=== PATIENT | female | born 1950 | race African-American/Black ===

== ENCOUNTER → 2019-12-23 | Outpatient (CLI) | payer MEDICARE ==
--- NOTE | 2019-12-23 16:53 | Diagnostic Imaging Report ---
EXAMINATION: CERVICAL SPINE 4 OR 5 VIEWS INDICATION: Cervical spondylosis COMPARISON: None FINDINGS: 5 views of the cervical spine were obtained. No acute fracture or dislocation. There is straightening of the normal cervical lordosis. Alignment is otherwise anatomic. Moderate multilevel degenerative changes with disc space narrowing and osteophyte formation most notably at C3-4 and C5-6. Oblique views demonstrate associated foraminal narrowing. IMPRESSION: No acute osseous injury. Straightening of the normal cervical lordosis and moderate multilevel degenerative changes as above. Signed by: Ariel Chairez MD on 12/23/2019 4:50 PM
== END ==
LOC: RAD 15:30
PROVIDERS: ATTEND Internal Medicine
DX: M47.22 Other spondylosis with radiculopathy, cervical region (principal)
CPT/HCPCS: 72050

== ENCOUNTER 2021-08-21 17:56 | Inpatient (IN) | payer MEDICARE ==
[~2021-08-21] VITALS: Ht 182.9 cm; Wt 134.7 kg
[2021-08-21] MEDS: SODIUM CHLORIDE 0.9% 1000ML 1,000 ML IV SCH (01:11)
[2021-08-21] MEDS: METRONIDAZOLE 500MG/NS 100ML 100 ML IV SCH (01:11)
[2021-08-21] MEDS ORDERED: SODIUM CHLORIDE 0.9% 1000ML 1,000 ML IV STA (18:09)
[2021-08-21] MEDS ORDERED: ASPIRIN 81 MG CHEW TAB PO ONE (18:15)
[2021-08-21 18:25] LABS: BASOPHILS % 0.5 % (0.0-1.0); EOSINOPHILS % 0.2 % (0.0-6.0); HEMATOCRIT 37.8 % (34.2-44.1); HEMOGLOBIN 11.6 g/dL (12.0-16.0); LYMPHOCYTES # (AUTO) 0.7 (1.0-3.2); LYMPHOCYTES % 11.1 % (18.0-39.1); MEAN CORPUSCULAR HEMOGLOBIN 28.2 pg (28-32); MEAN CORPUSCULAR HGB CONC 30.7 g/dL (31-35); MONOCYTES # (AUTO) 1.4 (0.2-0.8); NEUTROPHILS # (AUTO) 3.8 (2.1-6.9); NEUTROPHILS % 60.7 % (38.7-80.0); PLATELET COUNT 303 x10e3/uL (140-360); RED BLOOD COUNT 4.11 x10e6/uL (3.6-5.1); RED CELL DISTRIBUTION WIDTH 17.2 % (11.7-14.4)
[2021-08-21 18:46] LABS: ALBUMIN 3.4 g/dL (3.5-5.0); ALBUMIN/GLOBULIN RATIO 0.7 (0.8-2.0); ANION GAP 19.4 mmol/L (8-16); CALCIUM 8.7 mg/dL (8.4-10.2); CREATININE, SERUM 1.41 mg/dL (0.57-1.11); POTASSIUM 4.4 mmol/L (3.5-5.1)
[2021-08-21 18:52] LABS: BAND NEUTROPHILS % (MANUAL) 4 %; CREATINE KINASE MB 2.5 ng/mL (0-5.0); LYMPHOCYTES % (MANUAL) 19 % (19-48); MONOCYTES % (MANUAL) 19 % (3.4-9.0); MYELOCYTES % (MANUAL) 2 % (0-0); NEUTROPHILS % (MANUAL) 54 % (40-74); NUCLEATED RED BLOOD CELLS 1; PLATELET ESTIMATE ADEQUATE; PLATELET MORPHOLOGY COMMENT NORMAL; RBC MORPHOLOGY COMMENT NORMAL
[2021-08-21] MEDS ORDERED: ONDANSETRON HCL INJ 2MG/ML 2ML 2 MG/ML VIAL IV STA (20:23)
[2021-08-21] MEDS ORDERED: ONDANSETRON HCL INJ 2MG/ML 2ML 2 MG/ML VIAL ONE (20:25)
[2021-08-21] MEDS ORDERED: Morphine 4mg Syringe 4 MG/ML INJ IV PRN (22:30)
[2021-08-21] MEDS ORDERED: ONDANSETRON HCL INJ 2MG/ML 2ML 2 MG/ML VIAL IV PRN (22:30)
[2021-08-21 23:07] LABS: CLARITY,URINE CLOUDY (CLEAR); COLOR,URINE AMBER (YELLOW)
[2021-08-21 23:08] LABS: KETONES,URINE NEGATIVE (NEGATIVE); LEUKOCYTE ESTERASE ,URINE NEGATIVE (NEGATIVE); NITRITE,URINE NEGATIVE (NEGATIVE); PROTEIN,URINE DIPSTICK TRACE (NEGATIVE); URINE UROBILINOGEN 0.2 mg/dL (0.2 - 1)
[2021-08-21 23:09] LABS: BACTERIA,URINE MANY /HPF; EPITHELIAL CELLS,URINE MANY /LPF
[2021-08-22] VITALS (9 sets, daily range): BP systolic 142–159; BP diastolic 62–87
[2021-08-22] MEDS ORDERED: IOPAMIDOL 370 MG/ML 200 ML INFUS..BTL INJ ONE (01:16)
[2021-08-22] MEDS ORDERED: SODIUM CHLORIDE 0.9% 50ML 50 ML ONE (01:16)
[2021-08-22] MEDS ORDERED: FEROSUL325 MG PO (02:13)
[2021-08-22] MEDS ORDERED: METFORMIN HCL500 MG PO (02:13)
[2021-08-22] MEDS ORDERED: FUROSEMIDE40 MG PO (02:13)
[2021-08-22] MEDS ORDERED: CHOLECALCIFEROL1 GM PO (02:13)
[2021-08-22] MEDS ORDERED: RINVOQ ER15 MG PO (02:13)
[2021-08-22] MEDS ORDERED: LIPITOR10 MG PO (02:13)
[2021-08-22] MEDS ORDERED: LYRICA50 MG PO (02:13)
[2021-08-22] MEDS ORDERED: BUPROPION XL150 MG PO (02:13)
[2021-08-22] MEDS ORDERED: LOSARTAN POTAS100 MG PO (02:13)
[2021-08-22] MEDS ORDERED: PANTOPRAZOLE SO40 MG PO (02:13)
[2021-08-22] MEDS ORDERED: POTASSIUM CHLO10 ME1 PO (02:13)
[2021-08-22] MEDS ORDERED: HYDROCHLOROTHIA25 MG PO (02:13)
[2021-08-22] MEDS ORDERED: FOLIC ACID-VIT1 EACH PO (02:13)
[2021-08-22] MEDS ORDERED: SPIRONOLACTONE50 MG (02:13)
[2021-08-22] MEDS ORDERED: METHOTREXATE2.5 MG PO (02:13)
[2021-08-22] MEDS ORDERED: CLONIDINE HCL0.1 MG PO (02:13)
[2021-08-22 04:06] LABS: CREATINE KINASE MB 2.5 ng/mL (0-5.0)
[2021-08-22 07:00] LABS: ALBUMIN/GLOBULIN RATIO 0.8 (0.8-2.0); ANION GAP 15.1 mmol/L (8-16); CALCIUM 8.2 mg/dL (8.4-10.2); CREATININE, SERUM 1.21 mg/dL (0.57-1.11); POTASSIUM 3.1 mmol/L (3.5-5.1)
[2021-08-22] MEDS: CIPROFLOXACIN 400 MG/D5W 200ML 200 ML IV SCH ×2 (09:00→16:11)
[2021-08-22] MEDS: METRONIDAZOLE 500MG/NS 100ML 100 ML IV SCH (10:00)
[2021-08-22 11:29] LABS: BASOPHILS % 0.5 % (0.0-1.0); EOSINOPHILS # (AUTO) 0.1 (0.0-0.4); EOSINOPHILS % 0.8 % (0.0-6.0); HEMATOCRIT 38.7 % (34.2-44.1); HEMOGLOBIN 11.3 g/dL (12.0-16.0); LYMPHOCYTES # (AUTO) 0.9 (1.0-3.2); LYMPHOCYTES % 13.4 % (18.0-39.1); MEAN CORPUSCULAR HEMOGLOBIN 27.8 pg (28-32); MEAN CORPUSCULAR HGB CONC 29.2 g/dL (31-35); MONOCYTES # (AUTO) 1.6 (0.2-0.8); MONOCYTES % 24.9 % (4.4-11.3); NEUTROPHILS # (AUTO) 3.6 (2.1-6.9); NEUTROPHILS % 55.2 % (38.7-80.0); PLATELET COUNT 222 x10e3/uL (140-360); RED BLOOD COUNT 4.07 x10e6/uL (3.6-5.1); RED CELL DISTRIBUTION WIDTH 17.5 % (11.7-14.4)
[2021-08-22] MEDS ORDERED: SODIUM CHLORIDE 0.9% 250ML 0 ML ONE (11:36)
[2021-08-22 11:52] LABS: CREATINE KINASE MB 2.3 ng/mL (0-5.0); MEAN CORPUSCULAR VOLUME 95.4 fL (81-99)
[2021-08-22] MEDS: SODIUM CHLORIDE 0.9% 1000ML 1,000 ML IV SCH ×3 (16:30→22:30)
[2021-08-22] MEDS: METRONIDAZOLE 500 MG TAB PO SCH ×2 (18:00→21:47)
[2021-08-22] MEDS: CLONIDINE HCL 0.1 MG TAB PO SCH (21:46)
[2021-08-22] MEDS: PREGABALIN 50 MG CAP PO SCH (21:47)
[2021-08-22] MEDS: ATORVASTATIN 10 MG TAB PO SCH (21:47)
[2021-08-23] VITALS (8 sets, daily range): BP systolic 112–143; BP diastolic 65–90
[2021-08-23 05:53] LABS: BASOPHILS % 0.5 % (0.0-1.0); EOSINOPHILS # (AUTO) 0.1 (0.0-0.4); EOSINOPHILS % 1.4 % (0.0-6.0); HEMATOCRIT 33.1 % (34.2-44.1); LYMPHOCYTES # (AUTO) 0.7 (1.0-3.2); LYMPHOCYTES % 9.8 % (18.0-39.1); MEAN CORPUSCULAR HEMOGLOBIN 28.3 pg (28-32); MEAN CORPUSCULAR HGB CONC 30.2 g/dL (31-35); MEAN CORPUSCULAR VOLUME 93.8 fL (81-99); MONOCYTES # (AUTO) 1.5 (0.2-0.8); MONOCYTES % 19.9 % (4.4-11.3); NEUTROPHILS # (AUTO) 4.6 (2.1-6.9); NEUTROPHILS % 63.1 % (38.7-80.0); PLATELET COUNT 258 x10e3/uL (140-360); RED BLOOD COUNT 3.53 x10e6/uL (3.6-5.1); RED CELL DISTRIBUTION WIDTH 17.2 % (11.7-14.4)
[2021-08-23 06:15] LABS: CALCIUM 8.3 mg/dL (8.4-10.2); CREATININE, SERUM 1.05 mg/dL (0.57-1.11)
[2021-08-23] MEDS: SODIUM CHLORIDE 0.9% 1000ML 1,000 ML IV SCH ×3 (06:19→20:32)
[2021-08-23 06:42] LABS: % IRON SATURATION 11 % (15-50); IRON 29 ug/dL (50-170); TOTAL IRON BINDING CAPACITY 255 ug/dL (261-478); TRANSFERRIN 182 mg/dL (180-382)
[2021-08-23] MEDS ORDERED: POTASSIUM CHLORIDE 20 MEQ TAB CR PO ONE (09:00)
[2021-08-23] MEDS ORDERED: POTASSIUM CHLORIDE 20 MEQ TAB CR PO PRN (09:00)
[2021-08-23] MEDS: BUPROPION HCL 150 MG TABCR PO SCH (10:00)
[2021-08-23] MEDS: CIPROFLOXACIN 400 MG/D5W 200ML 200 ML IV SCH ×2 (10:00→16:30)
[2021-08-23] MEDS: METRONIDAZOLE 500 MG TAB PO SCH ×4 (10:00→20:32)
[2021-08-23] MEDS: LOSARTAN POTASSIUM 100 MG TAB PO SCH (10:00)
[2021-08-23] MEDS: FERROUS SULFATE 325 MG TAB PO SCH (10:00)
[2021-08-23] MEDS: IRON SUCROSE 100 MG in SODIUM CHLORIDE 0.9% 100 ML 100 ML IV SCH (11:00)
[2021-08-23 15:36] LABS: WBC,FECAL (FECAL LACTOFERRIN) POSITIVE (NEGATIVE)
[2021-08-23] MEDS: ATORVASTATIN 10 MG TAB PO SCH (20:32)
[2021-08-23] MEDS: CLONIDINE HCL 0.1 MG TAB PO SCH (20:32)
[2021-08-23] MEDS: PREGABALIN 50 MG CAP PO SCH (20:32)
[2021-08-24] VITALS (8 sets, daily range): BP systolic 115–153; BP diastolic 57–79
[2021-08-24] MEDS: SODIUM CHLORIDE 0.9% 1000ML 1,000 ML IV SCH ×3 (05:22→20:58)
[2021-08-24 05:35] LABS: BASOPHILS % 0.4 % (0.0-1.0); EOSINOPHILS # (AUTO) 0.1 (0.0-0.4); EOSINOPHILS % 1.6 % (0.0-6.0); HEMATOCRIT 33.1 % (34.2-44.1); HEMOGLOBIN 9.5 g/dL (12.0-16.0); LYMPHOCYTES # (AUTO) 0.7 (1.0-3.2); LYMPHOCYTES % 8.7 % (18.0-39.1); MEAN CORPUSCULAR HEMOGLOBIN 27.6 pg (28-32); MEAN CORPUSCULAR HGB CONC 28.7 g/dL (31-35); MEAN CORPUSCULAR VOLUME 96.2 fL (81-99); MONOCYTES # (AUTO) 1.2 (0.2-0.8); MONOCYTES % 14.5 % (4.4-11.3); NEUTROPHILS # (AUTO) 5.6 (2.1-6.9); NEUTROPHILS % 70.2 % (38.7-80.0); PLATELET COUNT 231 x10e3/uL (140-360); RED BLOOD COUNT 3.44 x10e6/uL (3.6-5.1); RED CELL DISTRIBUTION WIDTH 17.5 % (11.7-14.4)
[2021-08-24 06:06] LABS: ALBUMIN 2.8 g/dL (3.5-5.0); ALBUMIN/GLOBULIN RATIO 0.8 (0.8-2.0); ANION GAP 11.1 mmol/L (8-16); CALCIUM 8.1 mg/dL (8.4-10.2); CREATININE, SERUM 1.07 mg/dL (0.57-1.11); POTASSIUM 3.1 mmol/L (3.5-5.1)
[2021-08-24] MEDS ORDERED: IRON SUCROSE 100 MG in SODIUM CHLORIDE 0.9% 100 ML 100 ML IV SCH (09:00)
[2021-08-24] MEDS ORDERED: ONDANSETRON HCL 4 MG ORAL DISINTEGRATING TAB PO PRN (09:15)
[2021-08-24] MEDS: CIPROFLOXACIN 400 MG/D5W 200ML 200 ML IV SCH ×2 (10:18→17:16)
[2021-08-24] MEDS: METRONIDAZOLE 500 MG TAB PO SCH ×4 (10:19→20:58)
[2021-08-24] MEDS: BUPROPION HCL 150 MG TABCR PO SCH (10:19)
[2021-08-24] MEDS: LOSARTAN POTASSIUM 100 MG TAB PO SCH (10:19)
[2021-08-24] MEDS: FERROUS SULFATE 325 MG TAB PO SCH (10:19)
[2021-08-24] MEDS: IRON SUCROSE 100 MG in SODIUM CHLORIDE 0.9% 100 ML 100 ML IV SCH (12:00)
[2021-08-24 15:50] LABS: C DIFFICILE TOXIN A&B AMP PROB NEGATIVE (NEGATIVE)
[2021-08-24] MEDS: PREGABALIN 50 MG CAP PO SCH (20:58)
[2021-08-24] MEDS: ATORVASTATIN 10 MG TAB PO SCH (20:58)
[2021-08-24] MEDS: CLONIDINE HCL 0.1 MG TAB PO SCH (20:58)
[2021-08-25] VITALS (8 sets, daily range): BP systolic 99–147; BP diastolic 53–80
[2021-08-25] MEDS ORDERED: DICYCLOMINE HCL 20 MG TAB PO ONE (04:00)
[2021-08-25 05:00] LABS: BASOPHILS % 0.4 % (0.0-1.0); EOSINOPHILS # (AUTO) 0.1 (0.0-0.4); EOSINOPHILS % 1.6 % (0.0-6.0); HEMATOCRIT 31.6 % (34.2-44.1); HEMOGLOBIN 9.1 g/dL (12.0-16.0); LYMPHOCYTES # (AUTO) 0.6 (1.0-3.2); LYMPHOCYTES % 8.5 % (18.0-39.1); MEAN CORPUSCULAR HEMOGLOBIN 27.7 pg (28-32); MEAN CORPUSCULAR HGB CONC 28.8 g/dL (31-35); MEAN CORPUSCULAR VOLUME 96.3 fL (81-99); MONOCYTES # (AUTO) 0.9 (0.2-0.8); MONOCYTES % 11.4 % (4.4-11.3); NEUTROPHILS # (AUTO) 5.6 (2.1-6.9); PLATELET COUNT 265 x10e3/uL (140-360); RED BLOOD COUNT 3.28 x10e6/uL (3.6-5.1); RED CELL DISTRIBUTION WIDTH 17.9 % (11.7-14.4)
[2021-08-25 05:33] LABS: ALBUMIN 2.8 g/dL (3.5-5.0); ALBUMIN/GLOBULIN RATIO 0.8 (0.8-2.0); ANION GAP 12.3 mmol/L (8-16); CALCIUM 8.1 mg/dL (8.4-10.2); CREATININE, SERUM 1.11 mg/dL (0.57-1.11); POTASSIUM 3.3 mmol/L (3.5-5.1)
[2021-08-25] MEDS: SODIUM CHLORIDE 0.9% 1000ML 1,000 ML IV SCH ×2 (06:17→22:30)
[2021-08-25] MEDS: CIPROFLOXACIN 400 MG/D5W 200ML 200 ML IV SCH ×2 (09:00→17:25)
[2021-08-25] MEDS: DICYCLOMINE HCL 20 MG TAB PO SCH ×5 (09:43→21:00)
[2021-08-25] MEDS: LOSARTAN POTASSIUM 100 MG TAB PO SCH (09:43)
[2021-08-25] MEDS: METRONIDAZOLE 500 MG TAB PO SCH ×4 (09:44→20:56)
[2021-08-25] MEDS: FERROUS SULFATE 325 MG TAB PO SCH (09:44)
[2021-08-25] MEDS: BUPROPION HCL 150 MG TABCR PO SCH (09:44)
[2021-08-25] MEDS: IRON SUCROSE 100 MG in SODIUM CHLORIDE 0.9% 100 ML 100 ML IV SCH (11:00)
[2021-08-25] MEDS ORDERED: ACETAMINOPHEN 325 MG TAB PO PRN (15:45)
[2021-08-25] MEDS: CLONIDINE HCL 0.1 MG TAB PO SCH (20:56)
[2021-08-25] MEDS: ATORVASTATIN 10 MG TAB PO SCH (20:56)
[2021-08-25] MEDS: IBUPROFEN 200 MG TAB PO PRN (20:56)
[2021-08-25] MEDS: PREGABALIN 50 MG CAP PO SCH (20:56)
[2021-08-26] VITALS (7 sets, daily range): BP systolic 127–146; BP diastolic 55–66
[2021-08-26] MEDS: DICYCLOMINE HCL 20 MG TAB PO SCH ×5 (01:24→20:57)
[2021-08-26] MEDS: SODIUM CHLORIDE 0.9% 1000ML 1,000 ML IV SCH ×3 (03:32→12:40)
[2021-08-26] MEDS: HEPARIN SOD (PORCINE) 5,000 UNIT/ML VIAL SC SCH ×2 (09:00→21:00)
[2021-08-26] MEDS: CIPROFLOXACIN 500 MG TAB PO SCH ×2 (09:00→17:32)
[2021-08-26] MEDS: METRONIDAZOLE 500 MG TAB PO SCH ×4 (09:00→20:57)
[2021-08-26] MEDS: LOSARTAN POTASSIUM 100 MG TAB PO SCH (09:00)
[2021-08-26] MEDS: FERROUS SULFATE 325 MG TAB PO SCH (09:00)
[2021-08-26] MEDS: BUPROPION HCL 150 MG TABCR PO SCH (09:00)
[2021-08-26] MEDS: ALBUTEROL/IPRATROPIUM 3 ML NEB NEB SCH ×2 (13:28→19:00)
[2021-08-26] MEDS: CLONIDINE HCL 0.1 MG TAB PO SCH (20:57)
[2021-08-26] MEDS: ATORVASTATIN 10 MG TAB PO SCH (20:57)
[2021-08-26] MEDS: PREGABALIN 50 MG CAP PO SCH (20:57)
[2021-08-27] MEDS: ALBUTEROL/IPRATROPIUM 3 ML NEB NEB SCH ×6 (01:35→18:40)
[2021-08-27] MEDS ORDERED: CHOLESTYRAMINE 4 GM PACKET PO PRN (02:00)
[2021-08-27 04:00] VITALS: BP 144/73
[2021-08-27 05:58] LABS: BASOPHILS % 0.3 % (0.0-1.0); EOSINOPHILS # (AUTO) 0.1 (0.0-0.4); EOSINOPHILS % 1.3 % (0.0-6.0); HEMATOCRIT 31.4 % (34.2-44.1); HEMOGLOBIN 9.1 g/dL (12.0-16.0); LYMPHOCYTES # (AUTO) 0.7 (1.0-3.2); LYMPHOCYTES % 9.7 % (18.0-39.1); MEAN CORPUSCULAR VOLUME 96.6 fL (81-99); MONOCYTES # (AUTO) 0.8 (0.2-0.8); MONOCYTES % 10.8 % (4.4-11.3); NEUTROPHILS # (AUTO) 5.4 (2.1-6.9); NEUTROPHILS % 76.5 % (38.7-80.0); PLATELET COUNT 264 x10e3/uL (140-360); RED BLOOD COUNT 3.25 x10e6/uL (3.6-5.1); RED CELL DISTRIBUTION WIDTH 18.6 % (11.7-14.4)
[2021-08-27 06:23] LABS: INR 0.96; PROTHROMBIN TIME 13.6 seconds (11.9-14.5)
[2021-08-27 06:35] LABS: ALBUMIN 2.7 g/dL (3.5-5.0); ALBUMIN/GLOBULIN RATIO 0.8 (0.8-2.0); ANION GAP 12.5 mmol/L (8-16); CALCIUM 8.4 mg/dL (8.4-10.2); CREATININE, SERUM 0.9 mg/dL (0.57-1.11); POTASSIUM 3.5 mmol/L (3.5-5.1)
[2021-08-27 08:22] VITALS: BP 153/79
[2021-08-27] MEDS: BUPROPION HCL 150 MG TABCR PO SCH (10:58)
[2021-08-27] MEDS: METRONIDAZOLE 500 MG TAB PO SCH ×4 (10:58→20:53)
[2021-08-27] MEDS: LOSARTAN POTASSIUM 100 MG TAB PO SCH (10:58)
[2021-08-27] MEDS: FERROUS SULFATE 325 MG TAB PO SCH (10:58)
[2021-08-27] MEDS: DICYCLOMINE HCL 20 MG TAB PO SCH ×4 (10:58→20:53)
[2021-08-27] MEDS: CIPROFLOXACIN 500 MG TAB PO SCH ×2 (10:58→16:00)
[2021-08-27] MEDS: HEPARIN SOD (PORCINE) 5,000 UNIT/ML VIAL SC SCH ×2 (10:59→20:54)
[2021-08-27 12:15] VITALS: BP 156/71
[2021-08-27 16:30] VITALS: BP 161/72
[2021-08-27] MEDS: SODIUM CHLORIDE 0.9% 1000ML 1,000 ML IV SCH (19:48)
[2021-08-27 19:55] VITALS: BP 162/68
[2021-08-27] MEDS: CLONIDINE HCL 0.1 MG TAB PO SCH (20:53)
[2021-08-27] MEDS: PREGABALIN 50 MG CAP PO SCH (20:54)
[2021-08-27] MEDS: ATORVASTATIN 10 MG TAB PO SCH (20:54)
[2021-08-27 21:00] VITALS: BP 162/68
[2021-08-28] VITALS (7 sets, daily range): BP systolic 111–162; BP diastolic 63–81
[2021-08-28] MEDS: ALBUTEROL/IPRATROPIUM 3 ML NEB NEB SCH ×4 (01:35→18:10)
[2021-08-28] MEDS ORDERED: CHOLESTYRAMINE 4 GM PACKET PO ONE (01:45)
[2021-08-28] MEDS: LOSARTAN POTASSIUM 100 MG TAB PO SCH (08:52)
[2021-08-28] MEDS: DICYCLOMINE HCL 20 MG TAB PO SCH ×4 (08:52→21:03)
[2021-08-28] MEDS: BUPROPION HCL 150 MG TABCR PO SCH (08:52)
[2021-08-28] MEDS: CIPROFLOXACIN 500 MG TAB PO SCH ×2 (08:52→17:18)
[2021-08-28] MEDS: FERROUS SULFATE 325 MG TAB PO SCH (08:53)
[2021-08-28] MEDS: METRONIDAZOLE 500 MG TAB PO SCH ×4 (08:53→21:03)
[2021-08-28] MEDS: HEPARIN SOD (PORCINE) 5,000 UNIT/ML VIAL SC SCH ×2 (10:00→23:01)
[2021-08-28] MEDS: CHOLESTYRAMINE 4 GM PACKET PO SCH (10:36)
[2021-08-28] MEDS: SODIUM CHLORIDE 0.9% 1000ML 1,000 ML IV SCH (17:18)
[2021-08-28] MEDS: CLONIDINE HCL 0.1 MG TAB PO SCH (21:03)
[2021-08-28] MEDS: PREGABALIN 50 MG CAP PO SCH (21:03)
[2021-08-28] MEDS: ATORVASTATIN 10 MG TAB PO SCH (21:03)
[2021-08-29] VITALS (8 sets, daily range): BP systolic 126–145; BP diastolic 54–75
[2021-08-29] MEDS: ALBUTEROL/IPRATROPIUM 3 ML NEB NEB SCH ×4 (00:40→18:10)
[2021-08-29 06:25] LABS: BASOPHILS % 0.4 % (0.0-1.0); EOSINOPHILS # (AUTO) 0.1 (0.0-0.4); EOSINOPHILS % 1.7 % (0.0-6.0); HEMOGLOBIN 8.7 g/dL (12.0-16.0); LYMPHOCYTES # (AUTO) 0.6 (1.0-3.2); LYMPHOCYTES % 8.1 % (18.0-39.1); MEAN CORPUSCULAR HEMOGLOBIN 28.3 pg (28-32); MEAN CORPUSCULAR VOLUME 94.5 fL (81-99); MONOCYTES # (AUTO) 0.8 (0.2-0.8); MONOCYTES % 9.9 % (4.4-11.3); NEUTROPHILS # (AUTO) 6.1 (2.1-6.9); NEUTROPHILS % 78.9 % (38.7-80.0); PLATELET COUNT 271 x10e3/uL (140-360); RED BLOOD COUNT 3.07 x10e6/uL (3.6-5.1)
[2021-08-29 06:52] LABS: ANION GAP 12.7 mmol/L (8-16); CREATININE, SERUM 0.89 mg/dL (0.57-1.11); POTASSIUM 3.7 mmol/L (3.5-5.1)
[2021-08-29] MEDS: DICYCLOMINE HCL 20 MG TAB PO SCH ×4 (09:00→21:30)
[2021-08-29] MEDS: CIPROFLOXACIN 500 MG TAB PO SCH ×2 (09:53→17:09)
[2021-08-29] MEDS: METRONIDAZOLE 500 MG TAB PO SCH ×2 (09:53→17:09)
[2021-08-29] MEDS: FERROUS SULFATE 325 MG TAB PO SCH (09:55)
[2021-08-29] MEDS: LOSARTAN POTASSIUM 100 MG TAB PO SCH (09:55)
[2021-08-29] MEDS: BUPROPION HCL 150 MG TABCR PO SCH (09:55)
[2021-08-29] MEDS: CHOLESTYRAMINE 4 GM PACKET PO SCH (10:00)
[2021-08-29] MEDS: HEPARIN SOD (PORCINE) 5,000 UNIT/ML VIAL SC SCH ×2 (10:36→21:30)
[2021-08-29] MEDS: SODIUM CHLORIDE 0.9% 1000ML 1,000 ML IV SCH (11:48)
[2021-08-29] MEDS: CLONIDINE HCL 0.1 MG TAB PO SCH (21:30)
[2021-08-29] MEDS: ATORVASTATIN 10 MG TAB PO SCH (21:30)
[2021-08-30] VITALS (9 sets, daily range): BP systolic 137–162; BP diastolic 62–76
[2021-08-30] MEDS: ALBUTEROL/IPRATROPIUM 3 ML NEB NEB SCH ×4 (00:12→19:14)
[2021-08-30] MEDS: DICYCLOMINE HCL 20 MG TAB PO SCH ×5 (01:30→21:00)
[2021-08-30] MEDS: SODIUM CHLORIDE 0.9% 1000ML 1,000 ML IV SCH (07:48)
[2021-08-30] MEDS: CHOLESTYRAMINE 4 GM PACKET PO SCH (08:28)
[2021-08-30] MEDS: CIPROFLOXACIN 500 MG TAB PO SCH ×2 (08:29→17:29)
[2021-08-30] MEDS: FERROUS SULFATE 325 MG TAB PO SCH (08:29)
[2021-08-30] MEDS: BUPROPION HCL 150 MG TABCR PO SCH (08:30)
[2021-08-30] MEDS: HEPARIN SOD (PORCINE) 5,000 UNIT/ML VIAL SC SCH ×2 (09:00→21:44)
[2021-08-30] MEDS: LOSARTAN POTASSIUM 100 MG TAB PO SCH (09:01)
[2021-08-30] MEDS: IBUPROFEN 200 MG TAB PO PRN (09:57)
[2021-08-30] MEDS: ATORVASTATIN 10 MG TAB PO SCH (21:30)
[2021-08-30] MEDS: CLONIDINE HCL 0.1 MG TAB PO SCH (21:30)
[2021-08-31] MEDS: ALBUTEROL/IPRATROPIUM 3 ML NEB NEB SCH ×3 (03:20→12:58)
[2021-08-31] MEDS: SODIUM CHLORIDE 0.9% 1000ML 1,000 ML IV SCH (03:48)
[2021-08-31 05:07] VITALS: BP 148/70
[2021-08-31 08:02] VITALS: BP 138/70
[2021-08-31 08:03] VITALS: BP 138/70
[2021-08-31] MEDS: DICYCLOMINE HCL 20 MG TAB PO SCH ×2 (08:41→13:39)
[2021-08-31] MEDS: FERROUS SULFATE 325 MG TAB PO SCH (08:42)
[2021-08-31] MEDS: BUPROPION HCL 150 MG TABCR PO SCH (08:42)
[2021-08-31] MEDS: CIPROFLOXACIN 500 MG TAB PO SCH (08:42)
[2021-08-31] MEDS: CHOLESTYRAMINE 4 GM PACKET PO SCH ×2 (08:46→09:31)
[2021-08-31] MEDS: LOSARTAN POTASSIUM 100 MG TAB PO SCH (08:48)
[2021-08-31] MEDS: HEPARIN SOD (PORCINE) 5,000 UNIT/ML VIAL SC SCH (08:58)
[2021-08-31 12:33] VITALS: BP 138/64
[2021-08-31] MEDS ORDERED: PANTOPRAZOLE SOD 40 MG TABEC PO SCH (16:30)
== END 2021-08-31 14:15 | disposition home health service (06) | DRG 392 ==
LOC: ER 18:10 → ERHOLD 22:54 → MED/SURG3 08-22 00:50 → OBSVTOIN 08-23 12:23
PROVIDERS: ADMIT Internal Medicine; ATTEND Internal Medicine
PROC: 02HV33Z Insertion of Infusion Device into Superior Vena Cava, Percutaneous Approach (ICD-10-PCS; principal; 2021-08-22)
DX: K57.32 Diverticulitis of large intestine without perforation or abscess without bleeding (principal); M62.82 Rhabdomyolysis; N17.9 Acute kidney failure, unspecified; Z68.41 Body mass index [BMI] 40.0-44.9, adult; R00.2 Palpitations; G47.33 Obstructive sleep apnea (adult) (pediatric); E86.0 Dehydration; E66.9 Obesity, unspecified; R53.1 Weakness; M06.9 Rheumatoid arthritis, unspecified; K52.9 Noninfective gastroenteritis and colitis, unspecified; I10 Essential (primary) hypertension; D50.9 Iron deficiency anemia, unspecified; Z87.891 Personal history of nicotine dependence; Z20.822 Contact with and (suspected) exposure to COVID-19; R91.1 Solitary pulmonary nodule; K21.9 Gastro-esophageal reflux disease without esophagitis; R53.81 Other malaise
CPT/HCPCS: 36415; 71045; 71046; 71260; 74177; 80048; 80053; 81001; 82550; 82553; 82607; 82746; 82948; 83540; 83630; 83690; 83993; 84466; 84484; 85025; 85045; 85379; 85610; 87045; 87177; 87328; 87493; 93005; 94660; 94799; 99251; 99284; G0378; J1644; J1756; J2405; J7030; J7050; Q9967; U0002

== ENCOUNTER 2021-10-13 08:00 | Outpatient (RCR) | payer MEDICARE ==
[~2021-10-13 08:00] MED LIST: BUPROPION XL150 MG PO; CHOLECALCIFEROL1 GM PO; CLONIDINE HCL0.1 MG PO; FEROSUL325 MG PO; FOLIC ACID-VIT1 EACH PO; FUROSEMIDE40 MG PO; HYDROCHLOROTHIA25 MG PO; LIPITOR10 MG PO; LOSARTAN POTAS100 MG PO; LYRICA50 MG PO; METFORMIN HCL500 MG PO; METHOTREXATE2.5 MG PO; PANTOPRAZOLE SO40 MG PO; POTASSIUM CHLO10 ME1 PO; RINVOQ ER15 MG PO; SPIRONOLACTONE50 MG
== END 2021-10-15 ==
LOC: OT 08:00
PROVIDERS: ATTEND Internal Medicine
DX: M25.562 Pain in left knee (principal); M25.561 Pain in right knee; G56.03 Carpal tunnel syndrome, bilateral upper limbs; M54.9 Dorsalgia, unspecified

== ENCOUNTER 2021-10-13 08:19 | Outpatient (RCR) | payer MEDICARE | END 2021-10-15 | LOC: PT 08:19 | PROVIDERS: ATTEND Internal Medicine | DX: M25.562 Pain in left knee (principal); M25.561 Pain in right knee; G56.03 Carpal tunnel syndrome, bilateral upper limbs; M54.9 Dorsalgia, unspecified ==

== ENCOUNTER 2021-12-07 15:27 | Outpatient (RCR) | payer MEDICARE | END 2021-12-13 | LOC: PT 15:27 | PROVIDERS: ATTEND Internal Medicine | DX: M54.50 Low back pain, unspecified (principal); M25.562 Pain in left knee; M25.561 Pain in right knee ==

== ENCOUNTER 2022-01-11 15:00 | Outpatient (RCR) | payer MEDICARE | END 2022-01-13 | LOC: PT 15:00 | PROVIDERS: ATTEND Internal Medicine | DX: M54.50 Low back pain, unspecified (principal); M25.569 Pain in unspecified knee | CPT/HCPCS: 97139 ==

== ENCOUNTER 2022-02-01 16:16 | Outpatient (RCR) | payer MEDICARE ==
[~2022-02-01 16:16] MED LIST changes: +BREZTRI AEROS10.7 GM INH; +VENTOLIN HFA18 GM INH
== END 2022-02-12 ==
LOC: PT 16:16
PROVIDERS: ATTEND Internal Medicine
DX: M54.50 Low back pain, unspecified (principal); M25.562 Pain in left knee; M25.561 Pain in right knee

== ENCOUNTER 2022-02-15 16:18 | Outpatient (RCR) | payer MEDICARE | END 2022-03-15 | LOC: PT 16:18 | PROVIDERS: ATTEND Internal Medicine | DX: M54.50 Low back pain, unspecified (principal); M25.562 Pain in left knee; M25.561 Pain in right knee | CPT/HCPCS: 97139 ==

== ENCOUNTER → 2022-08-18 | Outpatient (CLI) | payer MEDICARE | LOC: MAMMO 10:52 | PROVIDERS: ATTEND Internal Medicine | DX: N63.23 Unspecified lump in the left breast, lower outer quadrant (principal) | CPT/HCPCS: 77066 ==

== ENCOUNTER → 2024-07-12 | Outpatient (REF) | payer MEDICARE | LOC: MAMMO 14:03 | PROVIDERS: ATTEND Internal Medicine | DX: Z12.31 Encounter for screening mammogram for malignant neoplasm of breast (principal) | CPT/HCPCS: 77067 ==

== ENCOUNTER → 2025-08-14 | Outpatient (REF) | payer MEDICARE | LOC: MAMMO 11:15 | PROVIDERS: ATTEND Internal Medicine | DX: Z12.31 Encounter for screening mammogram for malignant neoplasm of breast (principal) | CPT/HCPCS: 77067 ==